=== PATIENT | male | born 1935 | race Caucasian/White ===

== ENCOUNTER 2017-04-12 11:48 | Inpatient (IN) | payer MEDICARE, OTHER ==
[~2017-04-12] VITALS: Ht 185.4 cm; Wt 100.0 kg
[~2017-04-12 11:48] MED LIST: CALCIUM CHLORIDE 10%, 10ML SYR ONE; MIDAZOLAM 1 MG/ML, 5ML ONE; PROPOFOL 10 MG/ML, 100ML IV ONE; VECURONIUM 10 MG ONE
[2017-04-12] MEDS ORDERED: SODIUM CHLORIDE 0.9% 1,000 ML IV ONE (12:09)
[2017-04-12 12:29] LABS: HEMATOCRIT 50.1 % (39.2-51.8); HEMOGLOBIN 16.1 g/dL (13.7-18.0); WHITE BLOOD COUNT 13.8 x10^3/uL (3.4-10)
[2017-04-12] MEDS ORDERED: DEXTROSE 5%, 50ML ONE (12:30)
[2017-04-12] MEDS ORDERED: MIDAZOLAM 1 MG/ML, 2ML IVPush ONE ×3 (12:30)
[2017-04-12] MEDS ORDERED: AMIODARONE 900 MG in DEXTROSE 5% 482 ML IV PRN (12:30)
[2017-04-12] MEDS ORDERED: AMIODARONE 50 MG/ML, 3ML IVPush ONE ×2 (12:30)
[2017-04-12] MEDS: NOREPINEPHRINE 4 MG in SODIUM CHLORIDE 0.9% 246 ML IV PRN ×2 (12:30→22:22)
[2017-04-12] MEDS ORDERED: SODIUM CHLORIDE FLUSH 10ML SYR IVF ONE (12:30)
[2017-04-12] MEDS ORDERED: DIGOXIN 0.25 MG/ML, 2ML ONE (12:30)
[2017-04-12] MEDS ORDERED: AMIODARONE 50 MG/ML, 3ML ONE (12:30)
[2017-04-12] MEDS ORDERED: MAGNESIUM SULFATE 1 GM/2 ML ONE (12:30)
[2017-04-12] MEDS ORDERED: SODIUM CHLORIDE 0.9% 1,000ML IVBOLUS ONE (12:30)
[2017-04-12] MEDS ORDERED: CALCIUM CHLORIDE 13.6 MEQ in SODIUM CHLORIDE 0.9% 100 ML IV ONE (12:30)
[2017-04-12] MEDS ORDERED: VECURONIUM 10 MG IVPush ONE (12:30)
[2017-04-12] MEDS ORDERED: FILTER 0.22 MICRON FOR AMIODARONE IV PRN ×2 (12:30→19:00)
[2017-04-12] MEDS ORDERED: DIGOXIN 0.25 MG/ML, 2ML IVPush ONE (12:30)
[2017-04-12 12:37] LABS: ASPARTATE AMINO TRANSFERASE 72 U/L (15-37); BLOOD UREA NITROGEN 55 mg/dL (7-18)
[2017-04-12 12:46] LABS: DIFF TOTAL CELLS COUNTED 100 CELL DIFF
[2017-04-12 12:48] LABS: VERIFY COUNTS? YES
[2017-04-12 12:49] LABS: ANISOCYTOSIS 1+
[2017-04-12 12:49] LABS: ABG COLLECTION SITE RIGHT RADIAL
[2017-04-12 12:50] LABS: COLLATERAL CIRCULATION TESTING NORMAL
[2017-04-12 12:58] LABS: IS PT STATUS REG ER OR PRE ER? YES
[2017-04-12] MEDS ORDERED: PROPOFOL 100 ML IV SCH (13:12)
[2017-04-12] MEDS ORDERED: MAGNESIUM SULFATE 1 GM/2 ML IVPush ONE (13:30)
[2017-04-12] MEDS ORDERED: SODIUM CHLORIDE 0.9%, 500ML IVBOLUS ONE (13:30)
[2017-04-12] MEDS ORDERED: CEFTRIAXONE PMX 1GM/50ML 50 ML IV ONE (13:30)
[2017-04-12] MEDS: SODIUM CHLORIDE 0.9% 1,000 ML IV SCH ×2 (13:56→21:56)
[2017-04-12] MEDS ORDERED: CEFTRIAXONE PMX 1GM/50ML 50 ML IV SCH (14:00)
[2017-04-12] MEDS ORDERED: ONDANSETRON 2MG/ML, 2ML IVPush PRN (14:00)
[2017-04-12] MEDS ORDERED: DOXYCYCLINE 100 MG in DEXTROSE 5% 250 ML IV SCH (14:00)
[2017-04-12] MEDS ORDERED: TEMAZEPAM 15 MG CAPSULE PO PRN (14:00)
[2017-04-12] MEDS ORDERED: CEFTRIAXONE PMX 1GM/50ML 50 ML ONE (14:06)
[2017-04-12] MEDS ORDERED: LACTULOSE 20 GM/30 ML UDC NG PRN (14:30)
[2017-04-12] MEDS ORDERED: LIDOCAINE-MPF 1%, 2ML ENDO PRN (14:30)
[2017-04-12] MEDS ORDERED: PHARMACY MAY ADJ FOR RENAL FX MC SCH (14:30)
[2017-04-12 15:09] LABS: IS PT STATUS REG ER OR PRE ER? YES
[2017-04-12] MEDS: AMIODARONE 900 MG in DEXTROSE 5% 482 ML IV PRN (17:00)
[2017-04-12] MEDS ORDERED: HEPARIN 5,000 UNITS/ML, 1ML IV ONE (17:30)
[2017-04-12] MEDS ORDERED: PLEASE ENTER HEIGHT MC SCH (17:30)
[2017-04-12] MEDS: HEPARIN 25,000 UNITS/500ML PMX 500 ML IV PRN (17:51)
[2017-04-12 18:48] LABS: IS PT STATUS REG ER OR PRE ER? NO
[2017-04-12] MEDS: PROPOFOL 100 ML IV PRN (19:10)
[2017-04-12] MEDS: MEROPENEM 1 GM in SODIUM CHLORIDE 0.9% 100 ML IV SCH (20:29)
[2017-04-13] MEDS: HEPARIN 5,000 UNITS/ML, 1ML IV PRN ×4 (00:39→20:22)
[2017-04-13] MEDS: SODIUM CHLORIDE 0.9% 1,000 ML IV SCH ×3 (03:11→20:01)
[2017-04-13 04:10] VITALS: BP 112/76
[2017-04-13 04:31] LABS: ABG COLLECTION SITE RIGHT RADIAL; COLLATERAL CIRCULATION TESTING NORMAL
[2017-04-13] MEDS: NOREPINEPHRINE 4 MG in SODIUM CHLORIDE 0.9% 246 ML IV PRN ×3 (06:20→22:36)
[2017-04-13 06:43] LABS: HEMATOCRIT 40.8 % (39.2-51.8); HEMOGLOBIN 13.5 g/dL (13.7-18.0)
[2017-04-13 06:54] LABS: ASPARTATE AMINO TRANSFERASE 93 U/L (15-37); BLOOD UREA NITROGEN 58 mg/dL (7-18)
[2017-04-13] MEDS ORDERED: VANCOMYCIN PER PHARMACY MC PRN (07:00)
[2017-04-13 07:08] LABS: ANISOCYTOSIS 1+; DIFF TOTAL CELLS COUNTED 200 CELL DIFF; VERIFY COUNTS? YES
[2017-04-13 07:10] LABS: LARGE PLATELETS 1+
[2017-04-13] MEDS ORDERED: PHARMACOKINETIC CONSULTATION MC ONE (07:30)
[2017-04-13] MEDS ORDERED: SODIUM PHOSPHATE 20 MMOL in SODIUM CHLORIDE 0.9% 500 ML IV ONE (07:30)
[2017-04-13] MEDS ORDERED: PHARMACOKINETIC MONITORING MC PRN (07:30)
[2017-04-13] MEDS: MEROPENEM 1 GM in SODIUM CHLORIDE 0.9% 100 ML IV SCH ×2 (07:48→20:01)
[2017-04-13] MEDS: PANTOPRAZOLE 40 MG IV IVPush SCH (07:49)
[2017-04-13] MEDS: SENNA/DOCUSATE TABLET PO SCH (07:52)
[2017-04-13] MEDS: VANCOMYCIN 1,600 MG in SODIUM CHLORIDE 0.9% 250 ML IV SCH (08:01)
[2017-04-13] MEDS ORDERED: SODIUM CHLORIDE 0.9% 1,000 ML IV SCH (08:30)
[2017-04-13] MEDS: PROPOFOL 100 ML IV PRN (11:24)
[2017-04-13] MEDS: morphine SULFATE 10 MG/ML, 1ML IVPush PRN (11:25)
[2017-04-13] MEDS: AMIODARONE 900 MG in DEXTROSE 5% 482 ML IV PRN (12:11)
[2017-04-13] MEDS: HEPARIN 25,000 UNITS/500ML PMX 500 ML IV PRN (14:38)
[2017-04-13] MEDS ORDERED: NOREPINEPHRINE 4 MG in SODIUM CHLORIDE 0.9% 246 ML IV PRN (17:30)
[2017-04-14] MEDS: HEPARIN 5,000 UNITS/ML, 1ML IV PRN ×3 (03:38→22:56)
[2017-04-14 03:56] LABS: HEMATOCRIT 38.1 % (39.2-51.8); HEMOGLOBIN 12.4 g/dL (13.7-18.0); WHITE BLOOD COUNT 17.3 x10^3/uL (3.4-10)
[2017-04-14 04:08] LABS: BLOOD UREA NITROGEN 51 mg/dL (7-18)
[2017-04-14 04:10] LABS: DIFF TOTAL CELLS COUNTED 100 CELL DIFF
[2017-04-14 04:12] LABS: ANISOCYTOSIS 1+; VERIFY COUNTS? YES
[2017-04-14 04:16] VITALS: BP 86/58
[2017-04-14 05:01] LABS: ABG COLLECTION SITE LEFT RADIAL; COLLATERAL CIRCULATION TESTING NORMAL
[2017-04-14] MEDS: PROPOFOL 100 ML IV PRN ×2 (05:10→15:24)
[2017-04-14] MEDS: MEROPENEM 1 GM in SODIUM CHLORIDE 0.9% 100 ML IV SCH ×2 (07:38→20:10)
[2017-04-14] MEDS: SODIUM CHLORIDE 0.9% 1,000 ML IV SCH ×3 (07:39→23:58)
[2017-04-14] MEDS: SENNA/DOCUSATE TABLET PO SCH (07:39)
[2017-04-14] MEDS: PANTOPRAZOLE 40 MG IV IVPush SCH (07:39)
[2017-04-14] MEDS: HEPARIN 25,000 UNITS/500ML PMX 500 ML IV PRN ×2 (10:27→23:56)
[2017-04-14] MEDS: morphine SULFATE 10 MG/ML, 1ML IVPush PRN (10:33)
[2017-04-14] MEDS: AMIODARONE 900 MG in DEXTROSE 5% 482 ML IV PRN ×2 (15:25→23:59)
[2017-04-14] MEDS: NOREPINEPHRINE 4 MG in SODIUM CHLORIDE 0.9% 246 ML IV PRN (15:25)
[2017-04-14] MEDS: VANCOMYCIN 1,600 MG in SODIUM CHLORIDE 0.9% 250 ML IV SCH (21:20)
[2017-04-15] MEDS: PROPOFOL 100 ML IV PRN ×2 (03:56→17:15)
[2017-04-15] MEDS: NOREPINEPHRINE 4 MG in SODIUM CHLORIDE 0.9% 246 ML IV PRN ×2 (04:09→15:22)
[2017-04-15 05:57] LABS: ABG COLLECTION SITE LEFT BRACHIAL
[2017-04-15 05:59] LABS: HEMATOCRIT 37.2 % (39.2-51.8); HEMOGLOBIN 12.1 g/dL (13.7-18.0); WHITE BLOOD COUNT 12.6 x10^3/uL (3.4-10)
[2017-04-15 06:32] LABS: ASPARTATE AMINO TRANSFERASE 175 U/L (15-37); BLOOD UREA NITROGEN 35 mg/dL (7-18)
[2017-04-15] MEDS: SENNA/DOCUSATE TABLET PO SCH (08:24)
[2017-04-15] MEDS: MEROPENEM 1 GM in SODIUM CHLORIDE 0.9% 100 ML IV SCH (08:24)
[2017-04-15] MEDS: PANTOPRAZOLE 40 MG IV IVPush SCH (08:24)
[2017-04-15] MEDS: SODIUM CHLORIDE 0.9% 1,000 ML IV SCH ×2 (11:22→21:56)
[2017-04-15] MEDS: HEPARIN 25,000 UNITS/500ML PMX 500 ML IV PRN (12:22)
[2017-04-15] MEDS: morphine SULFATE 10 MG/ML, 1ML IVPush PRN (12:39)
[2017-04-15] MEDS: CEFAZOLIN PMX 2GM/50ML 50 ML IVPB SCH ×2 (14:17→21:56)
[2017-04-15] MEDS: ACETAMINOPHEN 325 MG TABLET PO PRN (17:10)
[2017-04-16] MEDS: HEPARIN 25,000 UNITS/500ML PMX 500 ML IV PRN ×2 (00:58→13:28)
[2017-04-16] MEDS: AMIODARONE 900 MG in DEXTROSE 5% 482 ML IV PRN (03:33)
[2017-04-16] MEDS: NOREPINEPHRINE 4 MG in SODIUM CHLORIDE 0.9% 246 ML IV PRN ×3 (03:33→22:18)
[2017-04-16 04:42] LABS: ABG COLLECTION SITE RIGHT BRACHIAL
[2017-04-16 04:50] LABS: HEMOGLOBIN 10.6 g/dL (13.7-18.0); WHITE BLOOD COUNT 10.1 x10^3/uL (3.4-10)
[2017-04-16 05:01] LABS: BLOOD UREA NITROGEN 28 mg/dL (7-18)
[2017-04-16 05:18] LABS: ASPARTATE AMINO TRANSFERASE 156 U/L (15-37)
[2017-04-16] MEDS: CEFAZOLIN PMX 2GM/50ML 50 ML IVPB SCH ×3 (05:49→22:18)
[2017-04-16] MEDS ORDERED: POTASSIUM PHOSPHATE 44 MEQ in SODIUM CHLORIDE 0.9% 500 ML IV ONE (09:00)
[2017-04-16] MEDS ORDERED: MAGNESIUM SULFATE PMX 4GM/100M 100 ML IVPB ONE (09:00)
[2017-04-16] MEDS: PANTOPRAZOLE 40 MG IV IVPush SCH (09:37)
[2017-04-16] MEDS: SENNA/DOCUSATE TABLET PO SCH (09:38)
[2017-04-16] MEDS: morphine SULFATE 10 MG/ML, 1ML IVPush PRN (11:23)
[2017-04-16] MEDS: ACETAMINOPHEN 325 MG TABLET PO PRN (13:02)
[2017-04-16] MEDS: PROPOFOL 100 ML IV PRN (17:53)
[2017-04-17] MEDS: morphine SULFATE 10 MG/ML, 1ML IVPush PRN ×2 (01:26→15:10)
[2017-04-17] MEDS: HEPARIN 25,000 UNITS/500ML PMX 500 ML IV PRN ×2 (02:51→15:14)
[2017-04-17 04:21] LABS: ABG COLLECTION SITE LEFT RADIAL; COLLATERAL CIRCULATION TESTING NORMAL
[2017-04-17 04:31] LABS: HEMATOCRIT 30.7 % (39.2-51.8); HEMOGLOBIN 10.1 g/dL (13.7-18.0); WHITE BLOOD COUNT 12.8 x10^3/uL (3.4-10)
[2017-04-17 04:32] LABS: ASPARTATE AMINO TRANSFERASE 149 U/L (15-37); BLOOD UREA NITROGEN 28 mg/dL (7-18)
[2017-04-17] MEDS: CEFAZOLIN PMX 2GM/50ML 50 ML IVPB SCH ×3 (06:03→21:49)
[2017-04-17] MEDS: PANTOPRAZOLE 40 MG IV IVPush SCH (07:38)
[2017-04-17] MEDS: NOREPINEPHRINE 4 MG in SODIUM CHLORIDE 0.9% 246 ML IV PRN (07:40)
[2017-04-17] MEDS: AMIODARONE 900 MG in DEXTROSE 5% 482 ML IV PRN (07:45)
[2017-04-17] MEDS: DOCUSATE 50 MG/5 ML, 10ML UDC PO SCH (09:59)
[2017-04-17] MEDS: AMIODARONE 200 MG TABLET PO SCH ×2 (09:59→20:26)
[2017-04-17] MEDS: SENNOSIDES 8.8 MG/5 ML ORAL SOL PO SCH (10:00)
[2017-04-17] MEDS ORDERED: SODIUM PHOSPHATE 40 MEQ in SODIUM CHLORIDE 0.9% 500 ML IV ONE (10:00)
[2017-04-17] MEDS: PROPOFOL 100 ML IV PRN (14:02)
[2017-04-17] MEDS ORDERED: FUROSEMIDE 20 MG/2 ML IV ONE (20:00)
[2017-04-17] MEDS: LORazepam 2 MG/ML, 1ML IVPush PRN (20:26)
[2017-04-18 04:33] LABS: HEMATOCRIT 29.1 % (39.2-51.8); HEMOGLOBIN 9.7 g/dL (13.7-18.0); WHITE BLOOD COUNT 14.1 x10^3/uL (3.4-10)
[2017-04-18 04:35] LABS: ABG COLLECTION SITE LEFT RADIAL; COLLATERAL CIRCULATION TESTING NORMAL
[2017-04-18] MEDS: HEPARIN 25,000 UNITS/500ML PMX 500 ML IV PRN ×2 (04:43→17:17)
[2017-04-18 04:46] LABS: BLOOD UREA NITROGEN 29 mg/dL (7-18)
[2017-04-18 05:00] LABS: ASPARTATE AMINO TRANSFERASE 136 U/L (15-37)
[2017-04-18] MEDS: CEFAZOLIN PMX 2GM/50ML 50 ML IVPB SCH ×3 (06:00→21:36)
[2017-04-18] MEDS: NOREPINEPHRINE 4 MG in SODIUM CHLORIDE 0.9% 246 ML IV PRN ×3 (08:08→21:37)
[2017-04-18] MEDS: PANTOPRAZOLE 40 MG IV IVPush SCH (08:36)
[2017-04-18] MEDS: AMIODARONE 200 MG TABLET PO SCH ×2 (08:36→19:58)
[2017-04-18] MEDS: DOCUSATE 50 MG/5 ML, 10ML UDC PO SCH (08:36)
[2017-04-18] MEDS: SENNOSIDES 8.8 MG/5 ML ORAL SOL PO SCH (08:36)
[2017-04-18] MEDS: OXYcodone IR 5MG TABLET PO PRN ×4 (08:36→19:59)
[2017-04-18] MEDS ORDERED: SODIUM CHLORIDE 0.9% 1,000ML IVBOLUS ONE (17:00)
[2017-04-18] MEDS: LORazepam 2 MG/ML, 1ML IVPush PRN (23:04)
[2017-04-19] MEDS: LORazepam 2 MG/ML, 1ML IVPush PRN ×2 (02:39→23:18)
[2017-04-19] MEDS: morphine SULFATE 10 MG/ML, 1ML IVPush PRN ×2 (02:39→19:41)
[2017-04-19] MEDS: NOREPINEPHRINE 4 MG in SODIUM CHLORIDE 0.9% 246 ML IV PRN ×3 (03:35→19:37)
[2017-04-19 04:37] LABS: ABG COLLECTION SITE NOT DOCUMENTED
[2017-04-19 04:48] LABS: HEMATOCRIT 29.4 % (39.2-51.8); HEMOGLOBIN 9.6 g/dL (13.7-18.0); WHITE BLOOD COUNT 14.4 x10^3/uL (3.4-10)
[2017-04-19] MEDS: CEFAZOLIN PMX 2GM/50ML 50 ML IVPB SCH (05:14)
[2017-04-19 05:28] LABS: ASPARTATE AMINO TRANSFERASE 114 U/L (15-37); BLOOD UREA NITROGEN 24 mg/dL (7-18)
[2017-04-19] MEDS: HEPARIN 5,000 UNITS/ML, 1ML IV PRN (05:34)
[2017-04-19] MEDS: HEPARIN 25,000 UNITS/500ML PMX 500 ML IV PRN ×2 (05:37→18:05)
[2017-04-19] MEDS: DOCUSATE 50 MG/5 ML, 10ML UDC PO SCH (07:42)
[2017-04-19] MEDS: AMIODARONE 200 MG TABLET PO SCH ×2 (07:42→20:21)
[2017-04-19] MEDS: SENNOSIDES 8.8 MG/5 ML ORAL SOL PO SCH (07:42)
[2017-04-19] MEDS: PANTOPRAZOLE 40 MG IV IVPush SCH (07:42)
[2017-04-19] MEDS: POLYETHYLENE GLYCOL 17 GM PACKET PO PRN (07:43)
[2017-04-19] MEDS: OXYcodone IR 5MG TABLET PO PRN ×4 (07:43→20:23)
[2017-04-19] MEDS ORDERED: SODIUM CHLORIDE 0.9% 1,000 ML IV ONE (08:30)
[2017-04-19] MEDS ORDERED: CEFAZOLIN 2,000 MG in DEXTROSE 5% 50 ML IVPB SCH (15:00)
[2017-04-19] MEDS: CEFAZOLIN 2,000 MG in DEXTROSE 5% 50 ML IVPB SCH ×2 (15:15→22:05)
[2017-04-19] MEDS: HYDROCORTISONE 100 MG INJ. IVPush SCH ×2 (15:16→21:56)
[2017-04-20] MEDS: morphine SULFATE 10 MG/ML, 1ML IVPush PRN ×3 (01:52→16:26)
[2017-04-20] MEDS: LORazepam 2 MG/ML, 1ML IVPush PRN (01:52)
[2017-04-20] MEDS: NOREPINEPHRINE 4 MG in SODIUM CHLORIDE 0.9% 246 ML IV PRN ×2 (04:13→20:53)
[2017-04-20] MEDS: HEPARIN 25,000 UNITS/500ML PMX 500 ML IV PRN ×2 (04:14→16:28)
[2017-04-20] MEDS: OXYcodone IR 5MG TABLET PO PRN ×2 (04:41→20:53)
[2017-04-20 04:43] LABS: HEMATOCRIT 28.5 % (39.2-51.8); HEMOGLOBIN 9.6 g/dL (13.7-18.0); WHITE BLOOD COUNT 20.4 x10^3/uL (3.4-10)
[2017-04-20 04:48] LABS: ABG COLLECTION SITE RIGHT RADIAL; COLLATERAL CIRCULATION TESTING NORMAL
[2017-04-20] MEDS: HYDROCORTISONE 100 MG INJ. IVPush SCH ×3 (05:58→22:54)
[2017-04-20] MEDS: CEFAZOLIN 2,000 MG in DEXTROSE 5% 50 ML IVPB SCH ×3 (05:58→22:54)
[2017-04-20 06:30] LABS: ASPARTATE AMINO TRANSFERASE 109 U/L (15-37); BLOOD UREA NITROGEN 21 mg/dL (7-18)
[2017-04-20] MEDS: PANTOPRAZOLE 40 MG IV IVPush SCH (07:48)
[2017-04-20] MEDS: SENNOSIDES 8.8 MG/5 ML ORAL SOL PO SCH (09:29)
[2017-04-20] MEDS: DOCUSATE 50 MG/5 ML, 10ML UDC PO SCH (09:29)
[2017-04-20] MEDS: AMIODARONE 200 MG TABLET PO SCH ×2 (09:29→20:53)
[2017-04-20] MEDS: FENTANYL 50 MCG PATCH TD SCH (11:05)
[2017-04-20] MEDS ORDERED: PHARMACY MAY ADJ FOR RENAL FX MC SCH (22:30)
[2017-04-20] MEDS ORDERED: ONDANSETRON 2MG/ML, 2ML IVPush PRN (22:30)
[2017-04-20] MEDS ORDERED: TEMAZEPAM 15 MG CAPSULE PO PRN (22:30)
[2017-04-21] MEDS: morphine SULFATE 10 MG/ML, 1ML IVPush PRN (03:18)
[2017-04-21] MEDS: OXYcodone IR 5MG TABLET PO PRN ×3 (04:18→19:41)
[2017-04-21] MEDS: HEPARIN 25,000 UNITS/500ML PMX 500 ML IV PRN ×2 (04:48→17:54)
[2017-04-21 04:53] LABS: HEMATOCRIT 27.2 % (39.2-51.8); HEMOGLOBIN 9.1 g/dL (13.7-18.0); WHITE BLOOD COUNT 20.6 x10^3/uL (3.4-10)
[2017-04-21 04:57] LABS: ABG COLLECTION SITE RIGHT RADIAL; COLLATERAL CIRCULATION TESTING NORMAL
[2017-04-21 06:15] LABS: BLOOD UREA NITROGEN 25 mg/dL (7-18)
[2017-04-21] MEDS: CEFAZOLIN 2,000 MG in DEXTROSE 5% 50 ML IVPB SCH ×3 (06:27→23:22)
[2017-04-21] MEDS: HYDROCORTISONE 100 MG INJ. IVPush SCH ×3 (06:27→23:22)
[2017-04-21] MEDS ORDERED: MAGNESIUM SULFATE PMX 4GM/100M 100 ML IV ONE (07:30)
[2017-04-21] MEDS: PANTOPRAZOLE 40 MG IV IVPush SCH (08:33)
[2017-04-21] MEDS: DOCUSATE 50 MG/5 ML, 10ML UDC PO SCH (08:35)
[2017-04-21] MEDS: SENNOSIDES 8.8 MG/5 ML ORAL SOL PO SCH (08:36)
[2017-04-21] MEDS: POLYETHYLENE GLYCOL 17 GM PACKET PO PRN (08:36)
[2017-04-21] MEDS: AMIODARONE 200 MG TABLET PO SCH (08:36)
[2017-04-22] MEDS: OXYcodone IR 5MG TABLET PO PRN (03:10)
[2017-04-22] MEDS: morphine SULFATE 10 MG/ML, 1ML IVPush PRN ×4 (04:12→23:12)
[2017-04-22 04:36] LABS: ABG COLLECTION SITE LEFT BRACHIAL
[2017-04-22] MEDS: HEPARIN 25,000 UNITS/500ML PMX 500 ML IV PRN ×2 (05:34→16:28)
[2017-04-22 05:50] LABS: HEMATOCRIT 26.8 % (39.2-51.8); HEMOGLOBIN 8.8 g/dL (13.7-18.0); WHITE BLOOD COUNT 18.3 x10^3/uL (3.4-10)
[2017-04-22] MEDS: HYDROCORTISONE 100 MG INJ. IVPush SCH ×3 (06:27→23:09)
[2017-04-22] MEDS: CEFAZOLIN 2,000 MG in DEXTROSE 5% 50 ML IVPB SCH ×3 (06:27→23:09)
[2017-04-22] MEDS: SENNOSIDES 8.8 MG/5 ML ORAL SOL PO SCH (09:00)
[2017-04-22] MEDS: AMIODARONE 200 MG TABLET PO SCH (09:00)
[2017-04-22] MEDS: DOCUSATE 50 MG/5 ML, 10ML UDC PO SCH (09:00)
[2017-04-22] MEDS: PANTOPRAZOLE 40 MG IV IVPush SCH (09:39)
[2017-04-22] MEDS: METHYLNALTREXONE 12 MG/0.6 ML SQ SCH (09:39)
[2017-04-22] MEDS: LORazepam 2 MG/ML, 1ML IVPush PRN (11:43)
[2017-04-23] MEDS: LORazepam 2 MG/ML, 1ML IVPush PRN (01:03)
[2017-04-23 04:26] LABS: ABG COLLECTION SITE LEFT BRACHIAL
[2017-04-23 04:28] LABS: HEMATOCRIT 25.2 % (39.2-51.8); HEMOGLOBIN 8.4 g/dL (13.7-18.0)
[2017-04-23] MEDS: HEPARIN 25,000 UNITS/500ML PMX 500 ML IV PRN ×2 (05:36→19:17)
[2017-04-23] MEDS: HYDROCORTISONE 100 MG INJ. IVPush SCH ×3 (06:07→23:05)
[2017-04-23] MEDS: CEFAZOLIN 2,000 MG in DEXTROSE 5% 50 ML IVPB SCH ×3 (06:07→23:05)
[2017-04-23] MEDS: PANTOPRAZOLE 40 MG IV IVPush SCH (08:48)
[2017-04-23] MEDS: DOCUSATE 50 MG/5 ML, 10ML UDC PO SCH (08:49)
[2017-04-23] MEDS: FENTANYL REMOVE PATCH NOTE XX SCH (08:49)
[2017-04-23] MEDS: AMIODARONE 200 MG TABLET PO SCH (08:49)
[2017-04-23] MEDS: SENNOSIDES 8.8 MG/5 ML ORAL SOL PO SCH (08:49)
[2017-04-23] MEDS: OXYcodone IR 5MG TABLET PO PRN ×2 (08:57→15:09)
[2017-04-23] MEDS: FENTANYL 50 MCG PATCH TD SCH (09:33)
[2017-04-23 11:28] LABS: GAS LOT CARD-20261
[2017-04-23 11:39] LABS: GAS OBC PASS; GASTRIC OCCULT BLD POSITIVE (NEGATIVE)
[2017-04-23 15:56] VITALS: BP 129/60
[2017-04-23 19:30] VITALS: BP 135/84
[2017-04-24] VITALS (16 sets, daily range): BP systolic 95–137; BP diastolic 53–70
[2017-04-24] MEDS: LORazepam 2 MG/ML, 1ML IVPush PRN (04:26)
[2017-04-24] MEDS ORDERED: DILTIAZEM 5 MG/ML, 5ML IVPush ONE (04:30)
[2017-04-24] MEDS ORDERED: DILTIAZEM 125 MG in SODIUM CHLORIDE 0.9% 100 ML IV PRN (04:30)
[2017-04-24] MEDS ORDERED: HALOPERIDOL 5 MG/ML ONE (04:49)
[2017-04-24] MEDS ORDERED: HALOPERIDOL 5 MG/ML IV ONE (05:00)
[2017-04-24 06:29] LABS: ABG COLLECTION SITE RIGHT RADIAL; COLLATERAL CIRCULATION TESTING NORMAL
[2017-04-24 06:31] LABS: HEMATOCRIT 23.3 % (39.2-51.8); HEMOGLOBIN 7.6 g/dL (13.7-18.0); WHITE BLOOD COUNT 13.3 x10^3/uL (3.4-10)
[2017-04-24 06:41] LABS: BLOOD UREA NITROGEN 26 mg/dL (7-18)
[2017-04-24 06:47] LABS: ASPARTATE AMINO TRANSFERASE 60 U/L (15-37); DIFF TOTAL CELLS COUNTED 100 CELL DIFF
[2017-04-24 06:48] LABS: VERIFY COUNTS? YES
[2017-04-24 06:49] LABS: ANISOCYTOSIS 1+
[2017-04-24] MEDS ORDERED: HALOPERIDOL 5 MG/ML IM PRN (09:00)
[2017-04-24] MEDS: SENNOSIDES 8.8 MG/5 ML ORAL SOL PO SCH (09:00)
[2017-04-24] MEDS: DOCUSATE 50 MG/5 ML, 10ML UDC PO SCH (09:00)
[2017-04-24] MEDS: AMIODARONE 200 MG TABLET PO SCH (09:00)
[2017-04-24] MEDS: HEPARIN 25,000 UNITS/500ML PMX 500 ML IV PRN ×2 (09:35→22:13)
[2017-04-24] MEDS: HYDROCORTISONE 100 MG INJ. IVPush SCH ×2 (09:37→16:21)
[2017-04-24] MEDS: PANTOPRAZOLE 40 MG IV IVPush SCH (09:37)
[2017-04-24] MEDS: METHYLNALTREXONE 12 MG/0.6 ML SQ SCH (09:38)
[2017-04-24] MEDS: CEFAZOLIN 2,000 MG in DEXTROSE 5% 50 ML IVPB SCH ×2 (09:55→17:54)
[2017-04-24] MEDS: DILTIAZEM 125 MG in SODIUM CHLORIDE 0.9% 100 ML IV SCH (11:04)
[2017-04-25] MEDS: HYDROCORTISONE 100 MG INJ. IVPush SCH ×4 (01:36→22:33)
[2017-04-25] MEDS: DILTIAZEM 125 MG in SODIUM CHLORIDE 0.9% 100 ML IV SCH ×2 (01:36→12:03)
[2017-04-25 01:44] VITALS: BP 120/71
[2017-04-25] MEDS: CEFAZOLIN 2,000 MG in DEXTROSE 5% 50 ML IVPB SCH ×3 (02:46→18:05)
[2017-04-25 05:22] LABS: HEMATOCRIT 28.3 % (39.2-51.8); HEMOGLOBIN 9.2 g/dL (13.7-18.0); WHITE BLOOD COUNT 16.7 x10^3/uL (3.4-10)
[2017-04-25 06:53] LABS: DIFF TOTAL CELLS COUNTED 100 CELL DIFF
[2017-04-25 07:01] VITALS: BP 123/75
[2017-04-25 07:16] LABS: ANISOCYTOSIS 1+; VERIFY COUNTS? YES
[2017-04-25 07:26] LABS: POLYCHROMASIA 1+
[2017-04-25] MEDS ORDERED: TEMAZEPAM 15 MG CAPSULE NG PRN (09:00)
[2017-04-25] MEDS: DOCUSATE 50 MG/5 ML, 10ML UDC NG SCH (09:00)
[2017-04-25] MEDS: SENNOSIDES 8.8 MG/5 ML ORAL SOL NG SCH (09:00)
[2017-04-25] MEDS: PANTOPRAZOLE 40 MG IV IVPush SCH (09:01)
[2017-04-25] MEDS: AMIODARONE 200 MG TABLET NG SCH (09:01)
[2017-04-25] MEDS ORDERED: OXYcodone IR 5MG TABLET NG PRN (10:00)
[2017-04-25] MEDS ORDERED: ACETAMINOPHEN 325 MG TABLET NG PRN (10:00)
[2017-04-25] MEDS ORDERED: ALBUTEROL SULFATE 2.5 MG/3 ML ONE (11:13)
[2017-04-25] MEDS: HEPARIN 25,000 UNITS/500ML PMX 500 ML IV PRN ×2 (11:53→22:38)
[2017-04-25 13:14] VITALS: BP 116/71
[2017-04-25] MEDS: ALBUTEROL SULFATE 2.5 MG/3 ML NPPB SCH ×3 (15:50→21:53)
[2017-04-25] MEDS ORDERED: POTASSIUM CHLORIDE 40 MEQ in SODIUM CHLORIDE 0.9% 500 ML IV ONE (18:00)
[2017-04-25 20:27] VITALS: BP 129/72
[2017-04-26 00:04] VITALS: BP 118/70
[2017-04-26] MEDS: CEFAZOLIN 2,000 MG in DEXTROSE 5% 50 ML IVPB SCH ×3 (02:50→18:39)
[2017-04-26] MEDS: DILTIAZEM 125 MG in SODIUM CHLORIDE 0.9% 100 ML IV SCH ×2 (02:51→18:39)
[2017-04-26 05:52] LABS: HEMATOCRIT 26.2 % (39.2-51.8); HEMOGLOBIN 8.6 g/dL (13.7-18.0); WHITE BLOOD COUNT 16.2 x10^3/uL (3.4-10)
[2017-04-26 06:36] LABS: ASPARTATE AMINO TRANSFERASE 45 U/L (15-37); BLOOD UREA NITROGEN 19 mg/dL (7-18)
[2017-04-26] MEDS: HYDROCORTISONE 100 MG INJ. IVPush SCH ×3 (07:55→23:09)
[2017-04-26] MEDS: PANTOPRAZOLE 40 MG IV IVPush SCH (07:56)
[2017-04-26] MEDS: AMIODARONE 200 MG TABLET NG SCH (07:57)
[2017-04-26] MEDS: FENTANYL 50 MCG PATCH TD SCH (07:57)
[2017-04-26] MEDS: METHYLNALTREXONE 12 MG/0.6 ML SQ SCH (07:59)
[2017-04-26] MEDS: DOCUSATE 50 MG/5 ML, 10ML UDC NG SCH (08:00)
[2017-04-26 08:23] VITALS: BP 98/52
[2017-04-26] MEDS: FENTANYL REMOVE PATCH NOTE XX SCH (08:23)
[2017-04-26] MEDS: ALBUTEROL SULFATE 2.5 MG/3 ML NPPB SCH ×6 (08:50→22:38)
[2017-04-26] MEDS: DILTIAZEM 60 MG TABLET NG SCH ×2 (10:36→16:00)
[2017-04-26] MEDS: SENNOSIDES 8.8 MG/5 ML ORAL SOL NG SCH (10:44)
[2017-04-26] MEDS: HEPARIN 25,000 UNITS/500ML PMX 500 ML IV PRN ×2 (11:13→23:39)
[2017-04-26 13:33] VITALS: BP 101/64
[2017-04-26 18:59] VITALS: BP 110/71
[2017-04-26] MEDS: CEFAZOLIN PMX 2GM/50ML 50 ML IVPB SCH (23:29)
[2017-04-27 02:27] VITALS: BP 107/76
[2017-04-27] MEDS: CEFAZOLIN 2,000 MG in DEXTROSE 5% 50 ML IVPB SCH ×3 (02:29→18:06)
[2017-04-27] MEDS: DILTIAZEM 125 MG in SODIUM CHLORIDE 0.9% 100 ML IV SCH ×3 (02:29→22:43)
[2017-04-27 05:36] LABS: HEMATOCRIT 24.5 % (39.2-51.8); WHITE BLOOD COUNT 14.5 x10^3/uL (3.4-10)
[2017-04-27 07:38] VITALS: BP 96/60
[2017-04-27] MEDS: DOCUSATE 50 MG/5 ML, 10ML UDC NG SCH (09:00)
[2017-04-27] MEDS: SENNOSIDES 8.8 MG/5 ML ORAL SOL NG SCH (09:00)
[2017-04-27] MEDS: AMIODARONE 200 MG TABLET NG SCH (09:00)
[2017-04-27] MEDS: ALBUTEROL SULFATE 2.5 MG/3 ML NPPB SCH ×5 (09:00→23:40)
[2017-04-27] MEDS: HYDROCORTISONE 100 MG INJ. IVPush SCH ×2 (10:12→16:07)
[2017-04-27] MEDS: PANTOPRAZOLE 40 MG IV IVPush SCH (10:12)
[2017-04-27] MEDS: SODIUM CHLORIDE 0.9% 1,000 ML IV SCH (11:39)
[2017-04-27] MEDS: HEPARIN 25,000 UNITS/500ML PMX 500 ML IV PRN (12:01)
[2017-04-27 13:40] VITALS: BP 94/60
[2017-04-27] MEDS ORDERED: ACETAMINOPHEN 325 MG TABLET NG PRN (21:30)
[2017-04-27] MEDS ORDERED: PHARMACY MAY ADJ FOR RENAL FX MC SCH (21:30)
[2017-04-27] MEDS ORDERED: LACTULOSE 20 GM/30 ML UDC NG PRN (21:30)
[2017-04-27] MEDS ORDERED: ONDANSETRON 2MG/ML, 2ML IVPush PRN (21:30)
[2017-04-27] MEDS ORDERED: TEMAZEPAM 15 MG CAPSULE NG PRN (21:30)
[2017-04-28] MEDS: HYDROCORTISONE 100 MG INJ. IVPush SCH ×4 (00:32→23:48)
[2017-04-28] MEDS: HEPARIN 25,000 UNITS/500ML PMX 500 ML IV PRN ×3 (01:02→22:56)
[2017-04-28] MEDS: CEFAZOLIN 2,000 MG in DEXTROSE 5% 50 ML IVPB SCH ×3 (02:20→18:31)
[2017-04-28] MEDS: SODIUM CHLORIDE 0.9% 1,000 ML IV SCH ×2 (02:45→18:29)
[2017-04-28 02:59] VITALS: BP 91/58
[2017-04-28 05:22] LABS: ABG COLLECTION SITE LEFT BRACHIAL
[2017-04-28 05:31] LABS: HEMATOCRIT 25.8 % (39.2-51.8); HEMOGLOBIN 8.4 g/dL (13.7-18.0)
[2017-04-28] MEDS: ALBUTEROL SULFATE 2.5 MG/3 ML NPPB SCH ×7 (06:00→22:35)
[2017-04-28 06:05] LABS: ASPARTATE AMINO TRANSFERASE 31 U/L (15-37); BLOOD UREA NITROGEN 14 mg/dL (7-18)
[2017-04-28 06:27] VITALS: BP 94/57
[2017-04-28] MEDS: DILTIAZEM 125 MG in SODIUM CHLORIDE 0.9% 100 ML IV SCH ×2 (06:36→15:37)
[2017-04-28] MEDS: AMIODARONE 200 MG TABLET NG SCH (09:31)
[2017-04-28] MEDS: SENNOSIDES 8.8 MG/5 ML ORAL SOL NG SCH (09:31)
[2017-04-28] MEDS: DOCUSATE 50 MG/5 ML, 10ML UDC NG SCH (09:32)
[2017-04-28 09:35] VITALS: BP 84/58
[2017-04-28] MEDS: PANTOPRAZOLE 40 MG IV IVPush SCH (09:49)
[2017-04-28] MEDS: METHYLNALTREXONE 12 MG/0.6 ML SQ SCH (09:50)
[2017-04-28] MEDS ORDERED: POTASSIUM CHLORIDE 40 MEQ in SODIUM CHLORIDE 0.9% 500 ML IV ONE (10:00)
[2017-04-28 12:17] VITALS: BP 93/50
[2017-04-28 12:27] VITALS: BP 90/47
[2017-04-28 19:16] VITALS: BP 116/72
[2017-04-29 01:16] VITALS: BP 96/62
[2017-04-29] MEDS: CEFAZOLIN 2,000 MG in DEXTROSE 5% 50 ML IVPB SCH ×3 (01:57→18:00)
[2017-04-29] MEDS: LORazepam 2 MG/ML, 1ML IVPush PRN ×2 (02:12→20:36)
[2017-04-29] MEDS: DILTIAZEM 125 MG in SODIUM CHLORIDE 0.9% 100 ML IV SCH ×2 (04:42→12:29)
[2017-04-29 05:13] LABS: HEMATOCRIT 24.6 % (39.2-51.8); HEMOGLOBIN 7.9 g/dL (13.7-18.0); WHITE BLOOD COUNT 11.4 x10^3/uL (3.4-10)
[2017-04-29] MEDS: ALBUTEROL SULFATE 2.5 MG/3 ML NPPB SCH ×5 (06:00→22:45)
[2017-04-29 06:10] LABS: BLOOD UREA NITROGEN 11 mg/dL (7-18)
[2017-04-29 06:11] LABS: ASPARTATE AMINO TRANSFERASE 23 U/L (15-37)
[2017-04-29 06:18] VITALS: BP 108/62
[2017-04-29] MEDS: SODIUM CHLORIDE 0.9% 1,000 ML IV SCH (08:09)
[2017-04-29] MEDS: SENNOSIDES 8.8 MG/5 ML ORAL SOL NG SCH (09:00)
[2017-04-29] MEDS: DOCUSATE 50 MG/5 ML, 10ML UDC NG SCH (09:00)
[2017-04-29] MEDS: AMIODARONE 200 MG TABLET NG SCH (09:00)
[2017-04-29] MEDS: HYDROCORTISONE 100 MG INJ. IVPush SCH ×2 (09:11→17:08)
[2017-04-29] MEDS: PANTOPRAZOLE 40 MG IV IVPush SCH (09:11)
[2017-04-29] MEDS: FENTANYL REMOVE PATCH NOTE XX SCH (09:29)
[2017-04-29] MEDS: FENTANYL 50 MCG PATCH TD SCH (09:30)
[2017-04-29] MEDS ORDERED: POTASSIUM CHLORIDE 40 MEQ in SODIUM CHLORIDE 0.9% 500 ML IV ONE (10:30)
[2017-04-29] MEDS: HEPARIN 25,000 UNITS/500ML PMX 500 ML IV PRN ×2 (10:38→23:13)
[2017-04-29 14:32] VITALS: BP 102/66
[2017-04-29] MEDS ORDERED: TPN PER PHARMACY MC PRN (16:30)
[2017-04-29] MEDS ORDERED: SODIUM CHLORIDE 0.9% 1,000 ML IV SCH (17:00)
[2017-04-29] MEDS ORDERED: DEXTROSE 10% 500 ML IV PRN (17:00)
[2017-04-29] MEDS ORDERED: DEXTROSE 50%, 50ML SYRINGE IVPush PRN (17:00)
[2017-04-29] MEDS ORDERED: DEXTROSE 70% IV SCH (17:30)
[2017-04-29] MEDS ORDERED: FILTER 1.2 MICRON FOR TPN/PVN IV PRN (17:30)
[2017-04-29] MEDS ORDERED: [UNRECOGNIZED DRUG - OTHER] IV SCH (17:30)
[2017-04-29] MEDS ORDERED: AMINO ACID 10% IV SCH (17:30)
[2017-04-29] MEDS ORDERED: FAT EMULSIONS IV SCH (17:30)
[2017-04-29] MEDS: INSULIN REGULAR LOW DOSE Q6H X 48HRS SQ-INSULIN SCH (21:00)
[2017-04-29 21:43] VITALS: BP 102/54
[2017-04-30] MEDS: HYDROCORTISONE 100 MG INJ. IVPush SCH ×3 (00:27→15:44)
[2017-04-30] MEDS: LORazepam 2 MG/ML, 1ML IVPush PRN ×2 (01:17→15:44)
[2017-04-30] MEDS: CEFAZOLIN 2,000 MG in DEXTROSE 5% 50 ML IVPB SCH ×3 (01:57→18:06)
[2017-04-30] MEDS: DILTIAZEM 125 MG in SODIUM CHLORIDE 0.9% 100 ML IV SCH ×2 (02:32→14:38)
[2017-04-30 02:59] VITALS: BP 110/58
[2017-04-30] MEDS: INSULIN REGULAR LOW DOSE Q6H X 48HRS SQ-INSULIN SCH ×4 (03:00→21:21)
[2017-04-30] MEDS: ALBUTEROL SULFATE 2.5 MG/3 ML NPPB SCH ×5 (06:00→22:00)
[2017-04-30 06:40] VITALS: BP 103/70
[2017-04-30] MEDS: DOCUSATE 50 MG/5 ML, 10ML UDC NG SCH (08:14)
[2017-04-30] MEDS: AMIODARONE 200 MG TABLET NG SCH (08:15)
[2017-04-30] MEDS: SENNOSIDES 8.8 MG/5 ML ORAL SOL NG SCH (08:15)
[2017-04-30 08:31] LABS: HEMATOCRIT 24.7 % (39.2-51.8); HEMOGLOBIN 8.4 g/dL (13.7-18.0); WHITE BLOOD COUNT 12.6 x10^3/uL (3.4-10)
[2017-04-30] MEDS: METHYLNALTREXONE 12 MG/0.6 ML SQ SCH (08:57)
[2017-04-30] MEDS: PANTOPRAZOLE 40 MG IV IVPush SCH (08:58)
[2017-04-30] MEDS: HEPARIN 25,000 UNITS/500ML PMX 500 ML IV PRN ×2 (09:35→14:40)
[2017-04-30] MEDS ORDERED: AMIODARONE 900 MG in DEXTROSE 5% 482 ML IV PRN (10:00)
[2017-04-30 11:16] LABS: ASPARTATE AMINO TRANSFERASE 24 U/L (15-37); BLOOD UREA NITROGEN 11 mg/dL (7-18)
[2017-04-30 13:22] VITALS: BP 93/58
[2017-04-30] MEDS ORDERED: FAT EMULSIONS IV SCH (17:00)
[2017-04-30] MEDS ORDERED: FILTER 1.2 MICRON FOR TPN/PVN IV PRN (17:00)
[2017-04-30] MEDS ORDERED: AMINO ACID 10% IV SCH (17:00)
[2017-04-30] MEDS ORDERED: [UNRECOGNIZED DRUG - OTHER] IV SCH (17:00)
[2017-04-30] MEDS ORDERED: DEXTROSE 70% IV SCH (17:00)
[2017-04-30 17:26] VITALS: BP 104/67
[2017-04-30 18:34] VITALS: BP 109/74
[2017-04-30 20:21] LABS: ABG COLLECTION SITE RIGHT RADIAL; COLLATERAL CIRCULATION TESTING NORMAL
[2017-04-30] MEDS ORDERED: OMNIPAQUE 350 MG/ML, 100ML BOTTLE ONE (20:44)
[2017-04-30] MEDS ORDERED: CEFAZOLIN PMX 2GM/100ML 100 ML IVPB SCH (21:30)
[2017-05-01] MEDS: HYDROCORTISONE 100 MG INJ. IVPush SCH ×3 (00:36→16:47)
[2017-05-01 01:04] VITALS: BP 121/72
[2017-05-01] MEDS: CEFAZOLIN PMX 2GM/50ML 50 ML IVPB SCH ×3 (01:51→18:21)
[2017-05-01] MEDS: INSULIN REGULAR LOW DOSE Q6H X 48HRS SQ-INSULIN SCH (03:00)
[2017-05-01] MEDS: HEPARIN 25,000 UNITS/500ML PMX 500 ML IV PRN ×2 (03:12→16:01)
[2017-05-01] MEDS: DILTIAZEM 125 MG in SODIUM CHLORIDE 0.9% 100 ML IV SCH ×2 (04:05→16:47)
[2017-05-01 05:54] LABS: HEMATOCRIT 30.7 % (39.2-51.8); HEMOGLOBIN 9.7 g/dL (13.7-18.0); WHITE BLOOD COUNT 17.3 x10^3/uL (3.4-10)
[2017-05-01] MEDS: ALBUTEROL SULFATE 2.5 MG/3 ML NPPB SCH ×5 (06:00→23:24)
[2017-05-01 06:16] VITALS: BP 125/91
[2017-05-01 06:16] LABS: BLOOD UREA NITROGEN 17 mg/dL (7-18)
[2017-05-01] MEDS: DOCUSATE 50 MG/5 ML, 10ML UDC NG SCH (07:40)
[2017-05-01] MEDS: SENNOSIDES 8.8 MG/5 ML ORAL SOL NG SCH (07:40)
[2017-05-01] MEDS ORDERED: LIDOCAINE 1%, 20ML ONE (08:22)
[2017-05-01] MEDS: PANTOPRAZOLE 40 MG IV IVPush SCH (09:17)
[2017-05-01] MEDS ORDERED: FILTER 0.22 MICRON FOR AMIODARONE IV PRN (12:30)
[2017-05-01] MEDS: AMIODARONE 900 MG in DEXTROSE 5% 482 ML IV SCH (12:38)
[2017-05-01 14:21] VITALS: BP 110/74
[2017-05-01] MEDS ORDERED: [UNRECOGNIZED DRUG - OTHER] IV SCH (17:00)
[2017-05-01] MEDS ORDERED: DEXTROSE 70% IV SCH (17:00)
[2017-05-01] MEDS ORDERED: AMINO ACID 10% IV SCH (17:00)
[2017-05-01] MEDS ORDERED: FILTER 1.2 MICRON FOR TPN/PVN IV PRN (17:00)
[2017-05-01] MEDS ORDERED: FAT EMULSIONS IV SCH (17:00)
[2017-05-01 19:24] VITALS: BP 117/74
[2017-05-02] MEDS: HYDROCORTISONE 100 MG INJ. IVPush SCH ×3 (00:34→16:29)
[2017-05-02 00:54] VITALS: BP 102/62
[2017-05-02] MEDS: CEFAZOLIN PMX 2GM/50ML 50 ML IVPB SCH ×2 (02:05→12:30)
[2017-05-02] MEDS: HEPARIN 25,000 UNITS/500ML PMX 500 ML IV PRN ×2 (04:03→14:09)
[2017-05-02] MEDS: DILTIAZEM 125 MG in SODIUM CHLORIDE 0.9% 100 ML IV SCH ×2 (05:32→19:21)
[2017-05-02 06:08] LABS: BLOOD UREA NITROGEN 23 mg/dL (7-18)
[2017-05-02 06:12] LABS: ASPARTATE AMINO TRANSFERASE 515 U/L (15-37)
[2017-05-02 06:19] LABS: HEMATOCRIT 26.3 % (39.2-51.8); HEMOGLOBIN 8.4 g/dL (13.7-18.0); WHITE BLOOD COUNT 19.9 x10^3/uL (3.4-10)
[2017-05-02 06:45] LABS: DIFF TOTAL CELLS COUNTED 100 CELL DIFF
[2017-05-02 06:47] LABS: ANISOCYTOSIS 1+; POLYCHROMASIA 1+
[2017-05-02 06:48] LABS: OVALOCYTES 1+; TARGET CELLS 1+
[2017-05-02 06:49] LABS: VERIFY COUNTS? YES
[2017-05-02] MEDS: ALBUTEROL SULFATE 2.5 MG/3 ML NPPB SCH ×5 (06:57→23:17)
[2017-05-02] MEDS ORDERED: DOCUSATE 50 MG/5 ML ORAL SOL ONE (08:05)
[2017-05-02] MEDS: PANTOPRAZOLE 40 MG IV IVPush SCH (08:29)
[2017-05-02] MEDS: FENTANYL 50 MCG PATCH TD SCH (08:31)
[2017-05-02] MEDS: FENTANYL REMOVE PATCH NOTE XX SCH (08:32)
[2017-05-02] MEDS: SENNOSIDES 8.8 MG/5 ML ORAL SOL NG SCH (08:32)
[2017-05-02] MEDS: METHYLNALTREXONE 12 MG/0.6 ML SQ SCH (08:32)
[2017-05-02] MEDS: DOCUSATE 50 MG/5 ML, 10ML UDC NG SCH (08:32)
[2017-05-02 08:57] VITALS: BP 92/59
[2017-05-02] MEDS ORDERED: INSULIN REGULAR LOW DOSE QDAY SQ-INSULIN SCH (09:00)
[2017-05-02] MEDS ORDERED: DEXTROSE 10% 500 ML IV PRN (14:11)
[2017-05-02] MEDS: CEFUROXIME 1.5 GM in SODIUM CHLORIDE 0.9% 50 ML IV SCH ×2 (14:52→22:18)
[2017-05-02 16:18] VITALS: BP 92/64
[2017-05-02] MEDS ORDERED: FILTER 1.2 MICRON FOR TPN/PVN IV PRN (17:00)
[2017-05-02] MEDS ORDERED: AMINO ACID 10% IV SCH (17:00)
[2017-05-02] MEDS ORDERED: FAT EMULSIONS IV SCH (17:00)
[2017-05-02] MEDS ORDERED: [UNRECOGNIZED DRUG - OTHER] IV SCH (17:00)
[2017-05-02] MEDS ORDERED: DEXTROSE 70% IV SCH (17:00)
[2017-05-02 18:15] VITALS: BP 99/66
[2017-05-02] MEDS ORDERED: FILTER 0.22 MICRON FOR AMIODARONE IV PRN (20:30)
[2017-05-02] MEDS: AMIODARONE 900 MG in DEXTROSE 5% 482 ML IV SCH (20:31)
[2017-05-03] MEDS: HEPARIN 25,000 UNITS/500ML PMX 500 ML IV PRN ×2 (01:51→15:51)
[2017-05-03 03:58] VITALS: BP 136/83
[2017-05-03 05:15] LABS: HEMATOCRIT 25.4 % (39.2-51.8); HEMOGLOBIN 8.2 g/dL (13.7-18.0)
[2017-05-03 05:25] LABS: BLOOD UREA NITROGEN 26 mg/dL (7-18)
[2017-05-03] MEDS: CEFUROXIME 1.5 GM in SODIUM CHLORIDE 0.9% 50 ML IV SCH ×4 (05:58→22:47)
[2017-05-03] MEDS: ALBUTEROL SULFATE 2.5 MG/3 ML NPPB SCH ×5 (07:39→22:00)
[2017-05-03 07:46] VITALS: BP 99/58
[2017-05-03] MEDS: SENNOSIDES 8.8 MG/5 ML ORAL SOL NG SCH (09:00)
[2017-05-03] MEDS: DOCUSATE 50 MG/5 ML, 10ML UDC NG SCH (09:00)
[2017-05-03] MEDS: PANTOPRAZOLE 40 MG IV IVPush SCH (09:24)
[2017-05-03] MEDS: HYDROCORTISONE 100 MG INJ. IVPush SCH ×3 (09:24→16:14)
[2017-05-03] MEDS: DILTIAZEM 125 MG in SODIUM CHLORIDE 0.9% 100 ML IV SCH ×2 (10:00→22:48)
[2017-05-03 13:36] VITALS: BP 130/82
[2017-05-03 14:06] VITALS: BP 145/87
[2017-05-03] MEDS: LORazepam 2 MG/ML, 1ML IVPush PRN (14:59)
[2017-05-03] MEDS: POTASSIUM CHLORIDE 20 MEQ in DEXTROSE 5% 1,000 ML IV SCH (18:15)
[2017-05-03 20:49] VITALS: BP 108/79
[2017-05-04] MEDS: HYDROCORTISONE 100 MG INJ. IVPush SCH ×3 (00:11→17:02)
[2017-05-04 00:20] VITALS: BP 113/83
[2017-05-04] MEDS: HEPARIN 25,000 UNITS/500ML PMX 500 ML IV PRN ×2 (02:44→14:23)
[2017-05-04 03:42] LABS: HEMATOCRIT 31.2 % (39.2-51.8); HEMOGLOBIN 9.7 g/dL (13.7-18.0); WHITE BLOOD COUNT 17.4 x10^3/uL (3.4-10)
[2017-05-04] MEDS: CEFUROXIME 1.5 GM in SODIUM CHLORIDE 0.9% 50 ML IV SCH ×3 (06:38→21:32)
[2017-05-04] MEDS: PANTOPRAZOLE 40 MG IV IVPush SCH (08:00)
[2017-05-04] MEDS: ALBUTEROL SULFATE 2.5 MG/3 ML NPPB SCH ×5 (08:00→23:40)
[2017-05-04] MEDS: METHYLNALTREXONE 12 MG/0.6 ML SQ SCH (08:05)
[2017-05-04 08:27] VITALS: BP 108/74
[2017-05-04] MEDS: SENNOSIDES 8.8 MG/5 ML ORAL SOL NG SCH (09:00)
[2017-05-04] MEDS: DOCUSATE 50 MG/5 ML, 10ML UDC NG SCH (09:00)
[2017-05-04] MEDS: DILTIAZEM 125 MG in SODIUM CHLORIDE 0.9% 100 ML IV SCH (11:00)
[2017-05-04] MEDS: POTASSIUM CHLORIDE 20 MEQ in DEXTROSE 5% 1,000 ML IV SCH (13:30)
[2017-05-04 15:00] VITALS: BP 100/59
[2017-05-04 19:31] VITALS: BP 100/67
[2017-05-05] MEDS: DILTIAZEM 125 MG in SODIUM CHLORIDE 0.9% 100 ML IV SCH (00:01)
[2017-05-05] MEDS: morphine SULFATE 10 MG/ML, 1ML IVPush PRN (00:44)
== END 2017-05-05 01:30 | disposition expired | DRG 870 ==
LOC: ED 13:06 → EDIP 13:56 → CCU 15:28 → ICU 04-22 18:54 → 5SO 04-23 15:54
PROVIDERS: ADMIT Internal Medicine Critical Care Medicine; ATTEND Internal Medicine Critical Care Medicine
PROC: 5A1955Z Respiratory Ventilation, Greater than 96 Consecutive Hours (ICD-10-PCS; principal; 2017-04-12)
PROC: 0BH17EZ Insertion of Endotracheal Airway into Trachea, Via Natural or Artificial Opening (ICD-10-PCS; 2017-04-12)
PROC: 5A2204Z Restoration of Cardiac Rhythm, Single (ICD-10-PCS; 2017-04-12)
PROC: 0T9B70Z Drainage of Bladder with Drainage Device, Via Natural or Artificial Opening (ICD-10-PCS; 2017-04-12)
PROC: B5181ZA Fluoroscopy of Superior Vena Cava using Low Osmolar Contrast, Guidance (ICD-10-PCS; 2017-04-26)
PROC: 02HV33Z Insertion of Infusion Device into Superior Vena Cava, Percutaneous Approach (ICD-10-PCS; 2017-04-26)
PROC: B548ZZA Ultrasonography of Superior Vena Cava, Guidance (ICD-10-PCS; 2017-04-26)
PROC: 0W993ZZ Drainage of Right Pleural Cavity, Percutaneous Approach (ICD-10-PCS; 2017-05-01)
DX: A41.01 Sepsis due to Methicillin susceptible Staphylococcus aureus (principal); I63.40 Cerebral infarction due to embolism of unspecified cerebral artery; E43 Unspecified severe protein-calorie malnutrition; J15.20 Pneumonia due to staphylococcus, unspecified; J15.5 Pneumonia due to Escherichia coli; N17.0 Acute kidney failure with tubular necrosis; R65.21 Severe sepsis with septic shock; J96.01 Acute respiratory failure with hypoxia; E87.4 Mixed disorder of acid-base balance; I70.262 Atherosclerosis of native arteries of extremities with gangrene, left leg; Z99.11 Dependence on respirator [ventilator] status; G93.41 Metabolic encephalopathy; J15.4 Pneumonia due to other streptococci; I74.3 Embolism and thrombosis of arteries of the lower extremities; D68.59 Other primary thrombophilia; E27.40 Unspecified adrenocortical insufficiency; I24.8 Other forms of acute ischemic heart disease; I42.9 Cardiomyopathy, unspecified; I50.40 Unspecified combined systolic (congestive) and diastolic (congestive) heart failure; I82.412 Acute embolism and thrombosis of left femoral vein; I82.432 Acute embolism and thrombosis of left popliteal vein; I82.442 Acute embolism and thrombosis of left tibial vein; I82.492 Acute embolism and thrombosis of other specified deep vein of left lower extremity; M62.82 Rhabdomyolysis; D69.6 Thrombocytopenia, unspecified; E83.52 Hypercalcemia; E87.6 Hypokalemia; I11.0 Hypertensive heart disease with heart failure; I25.10 Atherosclerotic heart disease of native coronary artery without angina pectoris; I08.2 Rheumatic disorders of both aortic and tricuspid valves; I48.91 Unspecified atrial fibrillation; I77.819 Aortic ectasia, unspecified site; J32.9 Chronic sinusitis, unspecified; K80.20 Calculus of gallbladder without cholecystitis without obstruction; L89.159 Pressure ulcer of sacral region, unspecified stage; Z51.5 Encounter for palliative care; Z66 Do not resuscitate; Z87.891 Personal history of nicotine dependence; Z89.511 Acquired absence of right leg below knee; Z89.512 Acquired absence of left leg below knee; Z95.0 Presence of cardiac pacemaker
CPT/HCPCS: 31500; 32555; 36415; 36569; 36600; 70450; 71010; 71275; 74000; 74230; 76700; 76937; 77001; 80047; 80048; 80053; 80061; 80076; 81001; 82140; 82150; 82271; 82533; 82550; 82803; 82945; 82962; 83605; 83615; 83690; 83735; 83880; 83986; 84100; 84134; 84145; 84157; 84478; 84484; 85018; 85025; 85520; 85610; 85651; 86140; 86480; 86850; 86900; 87015; 87040; 87070; 87075; 87077; 87081; 87086; 87102; 87116; 87147; 87184; 87186; 87205; 87206; 87324; 89051; 93005; 93306; 93925; 93931; 94002; 94003; 94150; 94640; 96374; 96375; J0610; J0690; J0696; J0697; J1644; J2185; J2250; J2704; J3370; J3475; J3480; J3490; J7060; J7070; J7613; Q9967; 92523-GN; C1751; C9113; J0282; J1160; J1630; J1720; J1940; J2060; J2270; J3420; J7030; J7040; J7050